=== PATIENT | male | born 1975 | race Caucasian/White ===

== ENCOUNTER → 2020-03-11 14:53 | Outpatient (CLI) | payer OTHER, SELFPAY ==
--- NOTE | 2020-03-11 14:54 | CT_ITS ---
PROCEDURE: CT SINUS WO CON CLINICAL HISTORY: Bilateral Mid Axillary Facial Pain Inner ear pain, dizziness, numbness in left COMPARISON: No exams were available for comparison TECHNIQUE: Axial images obtained with sagittal and coronal reformats. All CT scans at the facility use one or more dose reduction, viz: automated exposure control, ma/kV adjustment per patient size (including targeted exams where dose is matched to indication, i.e. head), or iterative reconstruction technique. FINDINGS: There is mild mucosal thickening involving the floor the left frontal sinus extending into the left anterior ethmoids. Minimal right ethmoid sinus mucosal thickening. No sinus air-fluid level. The mastoid sinuses have an unremarkable appearance. The orbits appear unremarkable. No significant nasal septal deviation. The ostiomeatal units are patent. Mild osteoarthritic changes left TMJ with minimal subchondral cystic changes of the mandibular condyle.. There are impacted mandibular wisdom teeth IMPRESSION: 1. Mild paranasal sinus disease 2. Mild left TMJ arthropathy 3. Impacted wisdom teeth Dictated by: Rajesh Pringle MD 03/11/2020 19:33 Rajesh Pringle MD in [place] 03/11/2020 19:33
== END ==
PROVIDERS: PCP Family Medicine; Visit Provider Otolaryngology
DX: H92.02 Otalgia, left ear (principal); G89.29 Other chronic pain
CPT/HCPCS: 70486

== ENCOUNTER 2020-03-12 22:26 | Emergency (ER) | payer OTHER, SELFPAY ==
[2020-03-12 22:26] VITALS: BP 152/98; PULSE 101; RESP 16; TEMP 36.9; O2SAT 98; BMI 30.5
--- NOTE | 2020-03-12 22:54 | CT_ITS ---
Procedure: CT ANGIO HEAD CLINICAL HISTORY: Sinus Pain Left ear pressure, left jaw all arm and leg numbness COMPARISON: CT CT HEAD/BRAIN WO CON from 03/12/2020 TECHNIQUE: IV Contrast: 100ml Isovue 370 Axial images obtained with sagittal and coronal reformats. All CT scans at the facility use one or more dose reduction, viz: automated exposure control, ma/kV adjustment per patient size (including targeted exams where dose is matched to indication, i.e. head), or iterative reconstruction technique. FINDINGS: No aneurysm, dissection, arteriovenous malformation, or major branch occlusion apparent. No sinus thrombosis. No enhancing lesions. Arachnoid cyst once again noted in the left middle cranial fossa anteriorly. No enhancement IMPRESSION: Negative CTA of the brain Dictated by: Rajesh Pringle MD 03/13/2020 09:07 Rajesh Pringle MD in [facility] 03/13/2020 09:07
--- NOTE | 2020-03-12 22:54 | CT_ITS ---
Procedure: CT ANGIO NECK CLINICAL HISTORY: Sinus Pain Left ear pressure, jaw pain, left arm and leg numbness COMPARISON: No exams were available for comparison TECHNIQUE: IV Contrast: 100ml Isovue 370 Axial images obtained with sagittal and coronal reformats. All CT scans at the facility use one or more dose reduction, viz: automated exposure control, ma/kV adjustment per patient size (including targeted exams where dose is matched to indication, i.e. head), or iterative reconstruction technique. FINDINGS: The aortic arch and great vessels have an unremarkable appearance. No carotid stenosis dissection or aneurysm. Unremarkable vertebral arteries. Lung apices and soft tissues have an unremarkable appearance. IMPRESSION: Negative CTA of the neck Dictated by: Rajesh Pringle MD 03/13/2020 09:03 Rajesh Pringle MD in [facility] 03/13/2020 09:03
--- NOTE | 2020-03-12 22:59 | HMH.EDGENADL ---
ED Disposition Clinical Impression: Dizziness Disposition: Home, Self-Care Condition on Discharge: Good Instructions: DI for Vertigo Additional Instructions: call pcp in am for follow up Referrals: Jose Vaughan MD [Primary Care Provider] - - Critical Care Critical Care Time: No Attestation: On 03/12/20, the high probability of a clinically significant, sudden or life threatening deterioration of the following system(s) required my full and direct attention, intervention and personal management. The time I documented below is in addition to time spent performing reported procedures but includes the following listed in this critical care notation. Medical Decision Making - Medical Records Medical records reviewed: Yes: I reviewed the patient's medical records. - Tomás Inquiry Pt receiving controlled substance: No Vital Signs: 03/12/20 22:26 Temperature 98.4 F Temperature Source Oral Pulse Rate [Left Radial] 101 H Respiratory Rate 16 Blood Pressure [Right Arm] 152/98 H Blood Pressure Mean [Right Arm] 116 Blood Pressure Source [Right Arm] Automatic Cuff Blood Pressure Position [Right Arm] Sitting 02 Sat by Pulse Oximetry 98 Oxygen Delivery Method Room Air - Lab Data Lab results reviewed: Yes: I reviewed the patient's lab results. Lab Results 03/12/20 23:10: WBC 8.1, RBC 5.36, Hgb 16.3, Hct 49.1, MCV 91.7, MCH 30.4, MCHC 33.2, RDW 13.0, Plt Count 248, MPV 8.5, Neut % (Auto) 64.8, Lymph % (Auto) 27.2, Kent % (Auto) 6.7, Eos % (Auto) 0.9, Baso % (Auto) 0.5, Neut # (Auto) 5.3, Lymph # (Auto) 2.2, Kent # (Auto) 0.5, Eos # (Auto) 0.1, Baso # (Auto) 0.0, ESR 17 H 03/12/20 23:10: Sodium 139, Potassium 4.2, Chloride 102, Carbon Dioxide 28, Anion Gap 13.2, BUN 10, Creatinine 1.00, Estimated Creat Clear 145, Estimated GFR 82, Est GFR ( Amer) 99, Glucose 136 H, Calcium 10.0, Total Bilirubin 0.7, AST 40, ALT 26, Alkaline Phosphatase 95, C-Reactive Protein 2.6, Total Protein 8.5 H, Albumin 4.9, Globulin 3.6 H, Albumin/Globulin Ratio 1.4 03/12/20 23:10: Procalcitonin 0.040 Result diagrams: 03/12/20 23:10 03/12/20 23:10 Orders (Tests/Meds): ED MEDICATIONS Discontinued Medications Generic Name Dose Route Start Last Admin Trade Name Eladio PRN Reason Stop Dose Admin Iopamidol 100 ml 03/13/20 01:03 03/12/20 23:55 Iopamidol-370 (76%);100ml Bottle IV 03/13/20 01:04 100 ml ONCE ONE Administration Sodium Chloride 40 ml 03/13/20 01:03 03/12/20 23:55 0.9 % Sodium Chloride 50 Ml Vial IV 03/13/20 01:04 40 ml ONCE ONE Administration Sodium Chloride 10 ml 03/13/20 01:03 03/12/20 23:55 Sodium Chloride 0.9% 10ml Syr (Rad Only) IV 03/13/20 01:04 10 ml ONCE ONE Administration ORDERS Category Date Time Status CT angio head Stat Cat Scan 03/12/20 22:[address] angio neck Stat Cat Scan 03/12/20 22:[address] head/brain wo con Stat Cat Scan 03/12/20 23:49 Taken - CT Data CT Scan: Head, Other (ctahead/neck- see report) Time Received: 01:[address] Reviewed: Yes: I have viewed the radiologist's interpretation Preliminary Findings: Abnormal (see report) Medical Decision Narrative: has uncertain neurological finding may require mri.neuro consult and lumbar puncture General Adult HPI - General Chief complaint: PAIN Stated complaint: pressure in ear Time Seen by Provider: 03/12/20 22:59 Mode of Arrival: Ambulatory Source of Information: Patient, Spouse, Medical Record Limitations: No Limitations Description of Symptoms (Recalled from ER Triage Doc. by RN): Pt c/o increasing sinus pain in left side of jaw. Pt has seen for CT yesterday. - History of Present Illness HPI narrative: pt has had pressure to lt ear and seen pcp and ent with recent ct - he c/o also of over the last yr - no visual sx but has pulsatile tinnitus - sx worse last few days - no rash or trauma or fever Onset (ago): day(s) Location: head Severity: moderate Associated symptoms:
[2020-03-12 23:20] LABS: Basophils % 0.5 % (0.1-2.0); Eosinophils # 0.1 K/mm3 (0.0-0.4); Eosinophils % 0.9 % (0.1-12.0); Hematocrit 49.1 % (42.0-52.0); Hemoglobin 16.3 g/dL (14.1-18.0); Lymphocytes # 2.2 K/mm3 (0.7-4.5); Lymphocytes % 27.2 % (10-50); Mean Corpuscular HGB Conc 33.2 g/dL (31.8-35.4); Mean Corpuscular Hemoglobin 30.4 pg (27.0-31.2); Mean Corpuscular Volume 91.7 fl (80-94); Mean Platelet Volume 8.5 fl (7.4-10.4); Monocytes # 0.5 K/mm3 (0.1-1.0); Monocytes % 6.7 % (1.7-9.3); Neutrophils # 5.3 K/mm3 (1.8-7.8); Neutrophils % 64.8 % (37.0-80.0); Platelet Count 248 K/mm3 (142-424); Red Blood Count 5.36 M/mm3 (4.60-6.20); White Blood Count 8.1 K/mm3 (4.8-10.8)
[2020-03-12 23:27] LABS: Alanine Aminotransferase 26 U/L (12-78); Albumin Level 4.9 g/dl (3.5-5.0); Albumin/Globulin Ratio 1.4 (1.1-1.8); Alkaline Phosphatase 95 U/L (38-126); Anion Gap 13.2 mEq/L (5-15); Aspartate Amino Transferase 40 U/L (17-59); Bilirubin,Total 0.7 mg/dl (0.2-1.3); Blood Urea Nitrogen 10 mg/dl (9-20); Carbon Dioxide 28 mmol/L (22.0-30.0); Chloride 102 mmol/L (98-107); Creatinine Clearance Estimated 145 mL/min (50-200); Estimated Glomerular Filt Rate 82 ml/min (>60); GFR (African American) 99 ML/MIN (>60); Globulin 3.6 g/dL (1.3-3.2); Glucose 136 mg/dl (74-100); Potassium 4.2 mmoL/L (3.5-5.1); Sodium 139 mmol/L (136-145); Total Protein,Serum 8.5 g/dl (6.3-8.2)
[2020-03-12 23:32] LABS: C-Reactive Protein 2.6 mg/L (0-4)
--- NOTE | 2020-03-12 23:49 | CT_ITS ---
PROCEDURE: CT HEAD/BRAIN WO CON CLINICAL INDICATION: Comparison for CTA COMPARISON: CT CT HEAD/BRAIN WO CON from 03/20/2019 TECHNIQUE: Axial images obtained. All CT scans at the facility use one or more dose reduction, viz: automated exposure control, ma/kV adjustment per patient size (including targeted exams where dose is matched to indication, i.e. head), or iterative reconstruction technique. FINDINGS: No midline shift, mass effect, intracranial hemorrhage, hydrocephalus, or extra-axial fluid collection is evident. Arachnoid cyst in the left middle cranial fossa anteriorly once again noted unchanged 3.5 x 1 cm. Nonspecific mild prominence of the CSF spaces in the optic nerve sheath. The calvarium has an unremarkable appearance. No mastoid effusion. There is mild mucosal thickening of the ethmoid sinuses. IMPRESSION: 1. No acute intracranial findings. 2. No change arachnoid cyst left middle cranial fossa. 3. Mild symmetrical prominence of CSF spaces in the optic nerve sheaths which can be seen with pseudotumor cerebri. Dictated by: Rajesh Pringle MD 03/13/2020 06:33 Rajesh Pringle MD in [place] 03/13/2020 06:33
[2020-03-12 23:56] VITALS: BP 114/74; PULSE 94; O2SAT 96
[2020-03-13 00:23] LABS: Erythrocyte Sedimentation Rate 17 mm/hr (0-15)
--- NOTE | 2020-03-13 00:25 | PC.NURSE ---
pt back from CT via wheelchair
[2020-03-13 01:58] VITALS: BP 133/86; PULSE 92; RESP 16; TEMP 36.7; O2SAT 97
== END 2020-03-13 01:58 | disposition home or self-care (01) ==
PROVIDERS: Emergency Provider Emergency Medicine; PCP Family Medicine
DX: R42 Dizziness and giddiness (principal)
CPT/HCPCS: 70450; 70496; 70498; 80053; 84145; 85025; 85651; 86140; 99283; Q9967

== ENCOUNTER → 2020-05-13 15:33 | Outpatient (CLI) | payer OTHER, SELFPAY ==
--- NOTE | 2020-05-13 15:48 | ECG_ITS ---
APPROVED REPORT Exam: Resting ECG HR:62 bpm ECG Measurements Heart Rate 62 AXES WA 128 P 33 QRSd 92 QRS 28 QT 400 T 43 QTc 406 Conclusion Normal sinus rhythm Normal ECG Electronically signed by : Phillip Montero, 05/13/2020 20:53:27
== END ==
PROVIDERS: PCP Family Medicine; Visit Provider Family Medicine
DX: R07.2 Precordial pain (principal)
CPT/HCPCS: 93005

== ENCOUNTER → 2021-04-21 13:27 | Outpatient (CLI) | payer MEDICAID, SELFPAY ==
--- NOTE | 2021-04-21 13:27 | MR_ITS ---
FINAL REPORT CLINICAL HISTORY: Migraine. migraine headache. inner ear pressure on lt side. dizziness. numbness lt arm and leg. symptoms x2.[address] 03-12-20 FINDINGS: Multiplanar MR imaging of the brain was performed without and with contrast. There is no evidence of intracranial hemorrhage or mass. No abnormal extra-axial fluid collection is seen. The ventricular size is within normal limits. There is no evidence of shift of the midline structures. The posterior fossa and brainstem have an unremarkable appearance. No area of abnormal restricted diffusion is identified. No abnormal contrast enhancement is seen. Normal major vessel vascular flow voids are noted. IMPRESSION: No acute intracranial abnormality identified. Reviewed, Interpreted and Dictated by Ulysses Chavez III, MD Transcribed by Leda Bragg Authenticated by Ulysses Chavez III, MD on 04/21/2021 04:25:12 PM [facility]
== END ==
PROVIDERS: PCP Emergency Medicine; Visit Provider Emergency Medicine
DX: R42 Dizziness and giddiness (principal); R51.9 Headache, unspecified
CPT/HCPCS: 70553; A9576

== ENCOUNTER → 2021-05-08 14:00 | Outpatient (CLI) | payer MEDICAID, SELFPAY ==
--- NOTE | 2021-05-08 14:00 | CA_ITS ---
APPROVED REPORT EXAM: Comprehensive 2D, Doppler, and color-flow Echocardiogram Senior Engineering Associate: Trang Ochoa CRT Ht: 6 ft 2 in Wt: 234lbs BSA: 2.32 BP: 145/91 mmHg Indications: Abnormal ECG, Chest Pain, Hypertension/HDD 2D Dimensions LVOT 2.01 cm (M/F) 1.5-2.5 LA Volume 61.30 mL LA Volume Index 26.40 mL/m2 (M/F) 16-34 M-Mode Dimensions RVDd 2.61 cm (0.9-2.6) LA Diam 3.87 cm (1.9-4.0) LVDd 5.32 cm (3.5-5.7) Ao Diam 4.20 cm (2.0-3.7) LVDs 3.83 cm (3.5-5.7) IVSd 1.68 cm (0.6-1.1) PWd 0.85 cm (0.6-1.1) EF (Teich) 53.80% FS 28.00% EDV (Teich) 136.50 mL TAPSE 2.33 (<1.7) ESV (Teich) 63.10 mL LV Diastology E Decel Time 267.00 (160-240 msec) E/A Ratio 0.94 MED E' 7.30 (< 7 cm/sec) MED A' 8.80 cm/s E'/MED E' Ratio 20.58 (>14) LAT E' 8.20 (<10 cm/sec) LAT A' 9.50 cm/s E/LAT E' Ratio 18.32 (>14) Aortic Valve AO Peak GR. 8.70 mmHg Mitral Valve MV A Velocity 160.00 (40-130 cm/s) E/A Ratio 0.94 MV Decel. Time 267.00 (160-240 ms) Pulmonary Valve PV Peak Velocity 144.00 (50-150 cm/s) Tricuspid Valve TR P. Velocity 229.00 cm/s RAP Estimate 10.00 mmHg RVSP 31.00 mmHg Left Ventricle Left atrium is mildly enlarged, left ventricle is normal size, mild concentric left ventricular hypertrophy, visually estimated ejection fraction 55% with no regional wall motion abnormality. Grade 1 diastolic dysfunction seen without tissue Doppler evidence of raise left atrial pressure. Right Ventricle Right atrium and right ventricle are mildly enlarged with normal contractility. Aortic Valve Aortic valve is grossly normal, there is no aortic stenosis or aortic insufficiency. Mitral Valve Mitral valve is grossly normal, there is trace mitral regurgitation. Tricuspid Valve Tricuspid valve grossly normal, there is trace tricuspid regurgitation, tricuspid regurgitation jet velocity is inadequate for calculation of the right ventricular systolic pressure. Pulmonic Valve Pulmonic valve is poorly visualized Great Vessels Aortic root is normal size. Inferior vena cava is poorly visualized. Pericardium No significant pericardial effusion noted. Conclusion 1. Mild biatrial alignment, normal left ventricular size, mild concentric left ventricular hypertrophy, visually estimated ejection fraction 55% with no regional wall motion abnormality, grade 1 diastolic dysfunction seen without tissue Doppler evidence of raise left atrial pressure. 2. Mildly enlarged right ventricle with normal contractility. 3. Trace mitral and tricuspid regurgitation. 4. No significant pericardial effusion noted. 5. Inferior vena cava is poorly visualized without significant inspiratory collapse. Electronically signed by : Tyree Rodríguez MD 05/09/2021 15:29:23
--- NOTE | 2021-05-08 14:00 | CA_ITS ---
APPROVED REPORT Exam: Exercise Treadmill Technologist: Viktoria Dillard, Ht: 6 ft 0 in Wt: 234 lbs BSA: 2.28 m2 HR: 63 bpm BP: 153/103 mmHg Rhythm: NSR, ST-T ABNS IN LEADS III AND NON LINEAR EDITOR Medical History Medications: LoraTidine,,,,, Sumatriptan,,,,, TriaMcinalone,,,,, UBrogepant,,,,, SucCINATE,,,,, Galcanezumab-gnlm,,,,, Propranol ER,,,,, AcetONIDE,,,,, Allergies: AMOXICILLIN, PEANUTS Cardiac Risk Factors: Smoking Stress Test Details Test: Angel, Exercise stress testing was performed using a modified Angel protocol. HR Resting HR: 75 bpm Max Heart Rate (APMHR): 175 bpm Max HR Achieved: 134 bpm Target HR (85% APMHR): 149 bpm % of APMHR: 77 Recovery HR: 90 bpm BP Resting BP: 153/103 mmHg Max BP: 184/100 mmHg Recovery BP: 136.0/92.0 mmHg ECG Resting ECG: NSR, ST-T ABNS IN LEADS III AND NON LINEAR EDITOR Clinical Exercise duration: 07:16 min Highest Stage Achieved: Stage 3: 3.4 mph at 14% grade. Exercise capacity: 10.1 METs Stress ECG Conclusion PT EXERCISED 7:16 INTO STAGE III OF ANGEL PROTOCOL. NO CP. EXAGGERATION OF BASELINE ABNS IN LEADS III AND AVF. OTHERWISE NORMAL ST RESPONSE TO EXERCISE. PROBABLT NORMAL GXT TO HR ACHIEVED (77% OF PM) BLUNTED HR RESPONSE ON PROPANOLOL GXT ONLY (NO IMAGING) Test Summary REST . . . . . . . Standing REST . . . . . . . Sitting REST 03:18 0.0 0.0 75 . 153/103 . . Stage 1 01:00 10.0 1.7 90 . . . . Stage 1 02:00 10.0 1.7 107 . . . . Stage 1 03:00 10.0 1.7 101 . 162/104 . . Stage 2 01:00 12.0 2.5 115 . . . . Stage 2 02:00 12.0 2.5 117 . . . . Stage 2 03:00 12.0 2.5 120 . 184/100 . . Stage 3 01:00 14.0 3.4 130 . . . . Stage 3 01:16 14.0 3.4 134 . . . Stop exercise at 07:16 RECOVERY 01:00 0.0 0.0 119 . . . . RECOVERY 02:00 0.0 0.0 96 . 155/ 99 . . RECOVERY 03:00 0.0 0.0 76 . 155/ 99 . . RECOVERY 04:00 0.0 0.0 78 . 138/ 89 . . RECOVERY 05:00 0.0 0.0 90 . 136/ 92 . . RECOVERY 05:19 0.0 0.0 83 . 136/ 92 . . Electronically signed by : Tyree Rodríguez MD 05/09/2021 12:16:35
== END ==
PROVIDERS: PCP Emergency Medicine; Visit Provider Nurse Practitioner Family
DX: R07.9 Chest pain, unspecified (principal); R42 Dizziness and giddiness; R94.31 Abnormal electrocardiogram [ECG] [EKG]
CPT/HCPCS: 93017; 93306

== ENCOUNTER → 2021-05-16 17:19 | Outpatient (CLI) | payer MEDICAID, SELFPAY ==
--- NOTE | 2021-05-16 17:19 | MR_ITS ---
PROCEDURE INFORMATION: Exam: MRA Head Without Contrast; Arteriography Exam date and time: 05/16/2021 5:26 PM Age: 46 years old Clinical indication: Pain; Headache; Additional info: Headache, pulsatile tinnitus lt ear. Dizziness and blurred vision. Prior MR 04-21-21 TECHNIQUE: Imaging protocol: Magnetic resonance angiography head without contrast. Cezn-ap-fvroez (TOF) technique was utilized for this exam. Exam focused on the arteries. COMPARISON: CT ANGIO HEAD 03/12/2020 11:57 PM FINDINGS: ANTERIOR CIRCULATION: Intracranial INTERNAL CAROTID arteries: Intracranial internal carotid arteries are without flow limiting stenosis. . MIDDLE cerebral arteries: M1, M2 and their distal visualized branches are without flow limiting stenosis. . ANTERIOR cerebral arteries: A1, A2 and their distal visualized branches are without flow limiting stenosis. Anterior communicating artery is unremarkable. . POSTERIOR CIRCULATION: VERTEBRAL arteries: Intracranial vertebral arteries and their visualized branches are without flow limiting stenosis. . BASILAR artery: The basilar artery and its visualized proximal branches are without flow limiting stenosis. . POSTERIOR cerebral arteries: P1, P2 and their distal visualized branches are without flow limiting stenosis. IMPRESSION: NO acute flow-limiting stenosis or aneurysm of the CENTRAL/major intracranial arteries.
== END ==
PROVIDERS: PCP Emergency Medicine; Visit Provider Specialist
DX: H93.A2 Pulsatile tinnitus, left ear (principal)
CPT/HCPCS: 70544

== ENCOUNTER → 2021-12-01 06:22 | Outpatient (CLI) | payer MEDICAID, SELFPAY ==
--- NOTE | 2021-12-01 08:16 | HMH.ITSHM ---
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 []TRIAMCINOLONE PROPRANOLOL GALCANEZUMAB ASA ALBUTEROL
== END ==
PROVIDERS: PCP Emergency Medicine; Visit Provider Nurse Practitioner Family
DX: R06.00 Dyspnea, unspecified (principal); R07.9 Chest pain, unspecified
CPT/HCPCS: 78452; 93017; A9502; J2785

== ENCOUNTER → 2021-12-04 15:12 | Outpatient (CLI) | payer MEDICAID, SELFPAY ==
--- NOTE | 2021-12-04 15:15 | XR_ITS ---
FINAL REPORT CLINICAL HISTORY: Left shoulder pain, numbness down arm from rotator cuff for last 2 years FINDINGS: LEFT SHOULDER Three views demonstrate no acute fracture or dislocation. There is mild degenerative change of the acromioclavicular joint. The visualized bony structures are well aligned. No soft tissue abnormality is seen. IMPRESSION: Mild degenerative change of the acromioclavicular joint. Reviewed, Interpreted and Dictated by Ulysses Chavez III, MD Transcribed by Lisandra Segura Authenticated and [facility]
== END ==
PROVIDERS: PCP Emergency Medicine; Visit Provider Specialist
DX: M25.512 Pain in left shoulder (principal)
CPT/HCPCS: 73030

== ENCOUNTER → 2022-01-05 13:57 | Outpatient (CLI) | payer MEDICAID, SELFPAY ==
--- NOTE | 2022-01-05 13:57 | MR_ITS ---
FINAL REPORT CLINICAL HISTORY: Left shoulder pain, decreased range of motion FINDINGS: Multiplanar MR imaging of the left shoulder was performed without contrast. There is a partial thickness articular surface tear of the supraspinatus tendon involving greater than 50% of tendon thickness. The remaining tendons of the rotator cuff are intact. There is mild AC joint degenerative change. A small amount of fluid is seen in the subacromial/subdeltoid bursa. The glenoid labrum is intact. The long head of the biceps tendon is intact. No significant glenohumeral joint effusion is seen. There is mild degenerative change of the glenohumeral joint. There is a subchondral cyst in the posterior humeral head. There is no evidence of fracture or dislocation. The musculature is intact. There is no evidence of soft tissue mass. IMPRESSION: Partial thickness supraspinatus tendon tear, greater than 50%. Mild degenerative change. Reviewed, Interpreted and Dictated by Ulysses Chavez III, MD Transcribed by Edy Roman Authenticated and [facility]
== END ==
PROVIDERS: PCP Emergency Medicine; Visit Provider Specialist
DX: M25.512 Pain in left shoulder (principal); M25.612 Stiffness of left shoulder, not elsewhere classified
CPT/HCPCS: 73221

== ENCOUNTER → 2022-02-18 16:46 | Outpatient (CLI) | payer MEDICAID, SELFPAY ==
[2022-02-18 16:54] LABS: Microscopic, Urine URINE MICROSCOPIC (MICROSCOPIC)
[2022-02-18 17:41] LABS: Basophils # 0.1 K/mm3 (0-0.2); Basophils % 1.1 % (0.1-2.0); Eosinophils # 0.2 K/mm3 (0.0-0.4); Hematocrit 46.2 % (42.0-52.0); Hemoglobin 15.2 g/dL (14.1-18.0); Lymphocytes # 2.7 K/mm3 (0.7-4.5); Lymphocytes % 37.2 % (10-50); Mean Corpuscular Hemoglobin 30.2 pg (27.0-31.2); Mean Corpuscular Volume 91.5 fl (80-94); Monocytes # 0.5 K/mm3 (0.1-1.0); Monocytes % 6.5 % (1.7-9.3); Neutrophils # 3.9 K/mm3 (1.8-7.8); Neutrophils % 53.2 % (37.0-80.0); Platelet Count 262 K/mm3 (142-424); Red Blood Count 5.04 M/mm3 (4.60-6.20); Red Cell Distribution Width 13.1 % (11.5-17.5); White Blood Count 7.3 K/mm3 (4.8-10.8)
[2022-02-18 18:09] LABS: Appearance,Urine CLEAR (Clear); Bilirubin,Urine Negative (Negative); Blood, Urine TRACE-L (Negative); Color,Urine YELLOW (Yellow); Glucose,Urine (UA) Negative (Negative); Ketones,Urine Negative (Negative); Leukocyte Esterase,Urine Negative (Negative); Nitrate,Urine Negative (Negative); PH,Urine 5.5 (5.0-8.5); Protein,Urine Negative (Negative); Specific Gravity, Urine >= 1.030 (1.005-1.030); Urobilinogen,Urine 0.2 EU/dl (0.2)
[2022-02-18 19:29] LABS: Chloride 104 mmol/L (98-107)
[2022-02-18 19:30] LABS: Potassium 4.8 mmoL/L (3.5-5.1); Sodium 141 mmol/L (136-145)
[2022-02-18 19:32] LABS: Blood Urea Nitrogen 9 mg/dl (9-20); Estimated Glomerular Filt Rate 91 ml/min (>60); GFR (African American) 110 ML/MIN (>60)
[2022-02-18 19:33] LABS: Alanine Aminotransferase 19 U/L (12-78); Albumin Level 4.3 g/dl (3.5-5.0); Albumin/Globulin Ratio 1.4 (1.1-1.8); Alkaline Phosphatase 78 U/L (38-126); Anion Gap 12.8 mEq/L (5-15); Aspartate Amino Transferase 26 U/L (17-59); Bilirubin,Total 0.5 mg/dl (0.2-1.3); Calcium 9.1 mg/dl (8.4-10.2); Carbon Dioxide 29 mmol/L (22.0-30.0); Glucose 88 mg/dl (74-100); Total Protein,Serum 7.3 g/dl (6.3-8.2)
[2022-02-18 19:39] LABS: Bacteria,Urine Trace /lpf; Mucus,Urine 2+ /lpf
== END ==
PROVIDERS: PCP Emergency Medicine; Visit Provider Orthopaedic Surgery
DX: Z01.818 Encounter for other preprocedural examination (principal); M75.112 Incomplete rotator cuff tear or rupture of left shoulder, not specified as traumatic
CPT/HCPCS: 36415; 80053; 81001; 85025

== ENCOUNTER 2022-02-23 07:40 | Day surgery (SDC) | payer MEDICAID, SELFPAY ==
[2022-02-19 10:00] VITALS: BMI 30.2
[2022-02-23] VITALS (12 sets, daily range): BP systolic 119–153; BP diastolic 72–100; PULSE 82–95; RESP 12–18; TEMP 36.4–43; O2SAT 94–98
--- NOTE | 2022-02-23 10:54 | P.PN_ITS ---
[facility] Disclaimer: The information contained in this section may have been updated after the patient was seen, as this information can be updated by other users. Medical History History of anxiety History of asthma History of hypertension History of migraine Surgical History (Updated 02/23/22 @ 08:10 by Ro Maddox RN) No history of previous surgery Family History Other Family history of anxiety disorder Family history of cancer Social History Smoking Status: Former smoker alcohol intake: never substance use type: denies use current occupational status: unemployed Travel in the last 8 weeks: None household members: spouse and children housing: house [facility] Anesthesia Checklist Patient Identification Patient Identification: Verbal (Name & ) Structural Data Admitted From: Home Planned Operative Procedure/s: l shoulder arthroscopy Consent for Planned Operative Procedure(s) Verified: Yes NPO Status Verified Time NPO: 06:00 Additional verifications Anesthesia Reactions: No Hx Blood Transfusions: No Blood Transfusion Reaction: No Airway Assessment C-Spine Mobility Assessed: Yes TMJ Mobility Assessed: Yes Dentition: Poor Dentition Neurological Assessment Level of Consciousness: Awake, Alert and Appropriate Anesthesia Plan Anesthesia Risk discussed: Yes Anesthesia Plan: Verified ASA Class: II Anesthesia Type: General w/block Preoperative Comments Pre-Operative Comments: BP block exp to pt, pt agrees to proceed w block
--- NOTE | 2022-02-23 11:48 | P.PNANES_ITS ---
[facility] Anesthesia Record Part I Anesthesia Record I Intake, IV Amount: 1,500 Estimated blood loss (mL): 0 Urine output (mL): 0 Blood Pressure: 148/100 SaO2: 94 Pulse Rate: 95 Respiratory Rate: 12 Temperature: 97.8 F Patient is:: Awake and Stable Stable to PACU at:: 11:45
--- NOTE | 2022-02-23 11:51 | P.OP_ITS ---
Date of procedure: 02/23/22 Pre-op Diagnosis:: Left shoulder partial-thickness rotator cuff tear more than 50% supraspinatus Post-op Diagnosis:: Near full-thickness tearing left shoulder supraspinatus rotator cuff tendon Procedure performed:: Left shoulder arthroscopy with rotator cuff repair Surgeon:: Misael Bishop DO Professor Of Religious Studies(s):: Yee LUONG DEAN OF INSTRUCTION:: Dar Heredia Anesthesia: GETA and regional Estimated blood loss (mL): 0 Operative findings:: Near full-thickness tearing supraspinatus left rotator cuff Operative note:: Patient was identified preoperatively. Left shoulder marked with a yes and my initials. Transported to operative suite after undergoing a peripheral block with anesthesia. Placed upon on the operating bed. Airway secured. Then placed in a lateral position. All bony prominences well-padded with a axillary roll placed. Left arm was then placed inline traction with the arm renteria. Left shoulder prepped and draped in normal sterile fashion. Once prepped and draped final operative timeout performed to identify proper patient procedure and extremity. Everyone involved in case agreed. No contraindications to beginning. Did receive preoperative antibiotics. Marking pen was used to masha the bony landmarks of the shoulder and standard portal sites. Skin knife was used incise posterior viewing portal and blunt with trocar was placed in the glenohumeral joint and exchanged with a camera. I moved anteriorly just above the subscapularis tendon where the anterior working portal was made and switch with a purple cannula. Probe was then placed in the glenohumeral joint. Glenohumeral cartilage was intact. The biceps tendon was intact. The labrum was intact. There was fraying on the undersurface of the rotator cuff supraspinatus. This was debrided lightly with the sucker shaver. It was then marked with a PDS suture for visualization of the subacromial space. No further intra-articular pathology was seen. Camera was removed. Portals were established in the subacromial space. Within the subacromial space there was moderate amount of bursitis which was debrided with a sucker shaver. The area that was marked with a PDS was interrogated with a probe. There is near full-thickness tearing of the supraspinatus at this area. Therefore sucker shaver was used to debride this area complete rotator cuff tear at the supraspinatus footprint. Edges of the rotator cuff were debrided. Footprint was debrided. Using a speed fix method fiber tape was passed through the rotator cuff and brought to the medial swivel lock anchor. This gave good repair of the rotator cuff tendon. Pictures taken in the lateral portal and superiorly to confirm good coverage and repair of the rotator cuff tear. No further pathology was seen. Shoulder was drained. Cannulas were removed. Skin closed with nylon stitch sterile dressing placed. Patient placed in a pillow and sling taken recovery in stable condition. Condition: stable Disposition: PACU Complications:: None apparent
--- NOTE | 2022-02-23 12:49 | SUR.PHASEII ---
Pt medicated with Dilaudid 1mg IV for L sholder post-op pain 09/24 per order.
--- NOTE | 2022-02-27 11:36 | P.PNANES_ITS ---
[facility] Anesthesia Record Part II Anesthesia Record Part II Discharge Time: 12:25 Destination: Surgical Day Care (OP Surgery) PACU nurse assessment reviewed?: Yes Patient Condition:: Good Anesthesia Complications:: None Swallowing reflex intact?: Yes Cyanosis?: No Blood Pressure: 121/73 Pulse Rate: 84 Temperature: 97.5 F Mental Status: Alert & Oriented Pain level:: 0 Nausea and/or vomitting:: None Intake, IV Amount: 0
[2022-02-27 11:37] VITALS: BP 121/73; PULSE 84; TEMP 36.4
== END 2022-02-23 13:20 | disposition home or self-care (01) ==
PROVIDERS: PCP Emergency Medicine; Visit Provider Orthopaedic Surgery
PROC: (CPT 29805; principal; 2022-02-23 09:15)
DX: M75.112 Incomplete rotator cuff tear or rupture of left shoulder, not specified as traumatic (principal); M75.52 Bursitis of left shoulder
CPT/HCPCS: 29827; 96374; C1713; J2405

== ENCOUNTER 2022-04-02 12:30 | Day surgery (SDC) | payer MEDICAID, SELFPAY ==
[2022-04-02] VITALS (8 sets, daily range): BP systolic 112–156; BP diastolic 60–100; PULSE 78–107; RESP 12–18; TEMP 36.2–36.6; O2SAT 92–99; BMI 29.5
--- NOTE | 2022-04-02 14:20 | HMH.SCOPE ---
Procedure: Date: 04/02/22 Patient Date of :: 1975 Procedure Performed:: EGD Indications:: Melena, rectal bleeding Performing Provider:: Steven Nash MD Referring Provider:: Pascual Ty MD Sedation:: Propofol Procedure:: The gastroscope was gently passed through the incisoral orifice into the oral cavity and under direct visualization the esophagus was intubated. The endoscope was passed down the esophagus, through the stomach, and into the duodenum. Color, texture, mucosa, and anatomy of the esophagus, stomach, and duodenum were carefully examined with the scope. Findings:: Oropharynx: normal Esophagus: normal EG Junction: intact at 40 cm Cardia: normal Fundus: normal Body: normal Antrum: normal Duodenal bulb: normal Duodenum (second and third portion): normal Impression: Normal EGD Recommendations:: F/U PRN with PCP Complications:: None Estimated blood obtained (mL): 0
--- NOTE | 2022-04-02 14:22 | HMH.SCOPE ---
Procedure: Date: 04/02/22 Patient Date of :: 1975 Procedure Performed:: Colonoscopy with biopsies and mucosal tattoo Indications:: Melena, Rectal bleeding Performing Provider:: Steven Nash MD Referring Provider:: Pascual Ty Sedation:: Propofol Procedure:: After placing the patient in the left lateral decubitus position, the colonoscopy was gently inserted into the rectum and under direct visualization advanced to the cecum which was identified by transillumination in the right lower quadrant, identification of the ileocecal valve, appendiceal orifice, and cecal strap. Color, texture, mucosa, and anatomy of the colon were carefully examined with the scope. Findings:: Anal canal: normal Rectum: normal Sigmoid colon: Large 4+cm multilobulated villous polyp on a large stalk. Too large for endoscopic removal and high bleeding risk. Position marked with Matilde Ink tattoo & biopsied. Descending colon: normal without polyps or inflammatory changes Splenic flexure: normal Transverse colon: normal without polyps or inflammatory changes Hepatic flexure: normal Ascending colon: normal without polyps or inflammatory changes Cecum: normal Terminal ileum: not visualized Impression: Large multilobulated villous polyp on large stalk. Specimens:: Sigmoid polyp Recommendations:: Attempt at endoscopic removal with advanced endoscopy service or Complete removal with surgical sigmoid resection Complications:: None Estimated blood obtained (mL): 0
--- NOTE | 2022-04-02 14:37 | EXP.ANES.I ---
[facility] Anesthesia Record Part I Anesthesia Record I Intake, IV Amount: 1,500 Estimated blood loss (mL): 0 Urine output (mL): 0 Blood Pressure: 148/100 SaO2: 94 Pulse Rate: 95 Respiratory Rate: 12 Temperature: 97.8 F Patient is:: Awake and Stable Stable to PACU at:: 11:45
--- NOTE | 2022-04-02 14:39 | P.PN_ITS ---
[facility] Disclaimer: The information contained in this section may have been updated after the patient was seen, as this information can be updated by other users. Medical History History of anxiety History of asthma History of hypertension History of migraine Surgical History History of shoulder surgery Family History Other Family history of anxiety disorder Family history of cancer Family history of diabetes mellitus type II Social History (Updated 04/02/22 @ 12:40 by Leana Ceballos RN) Smoking Status: Former smoker alcohol intake: never substance use type: denies use current occupational status: unemployed Travel in the last 8 weeks: None household members: spouse and children housing: house marital status: education level: high school do you feel safe at home: Yes victim of physical abuse: No victim of emotional abuse: No victim of sexual abuse: No would you like helpful sources: No [facility] Anesthesia Checklist Patient Identification Patient Identification: Arm Band and Family Structural Data Admitted From: Home Planned Operative Procedure/s: EGD, Colostomy Consent for Planned Operative Procedure(s) Verified: Yes Verified Documents: Surgical Consent and History and Physical NPO Status Verified Time NPO: 00:00 Additional verifications Patient : No Anesthesia Reactions: No Hx Blood Transfusions: No Blood Transfusion Reaction: No Cephalosporin Allergy: No Previous Colonoscopy: No Airway Assessment C-Spine Mobility Assessed: Yes TMJ Mobility Assessed: Yes Dentition: Good Dentition Neurological Assessment Level of Consciousness: Awake, Alert, Appropriate and Follows Commands Hx Seizures: No Numbness or tingling in extremities: No Anesthesia Plan Anesthesia Risk discussed: Yes ASA Class: II Anesthesia Type: MAC Preoperative Comments Pre-Operative Comments: Bloody and black stools.
== END 2022-04-02 15:10 | disposition home or self-care (01) ==
PROVIDERS: PCP Emergency Medicine; Visit Provider Internal Medicine Gastroenterology
PROC: 0DJ08ZZ Inspection of Upper Intestinal Tract, Via Natural or Artificial Opening Endoscopic (ICD-10-PCS; CPT 43235; principal; 2022-04-02 13:30)
DX: D12.5 Benign neoplasm of sigmoid colon; K92.1 Melena; Z79.899 Other long term (current) drug therapy
CPT/HCPCS: 43235; 45380; J2704

== ENCOUNTER 2022-06-22 17:00 | Outpatient (RCR) | payer MEDICAID, SELFPAY ==
--- NOTE | 2022-04-27 17:41 | HMH.PTOPEV ---
PT Outpatient Evaluation Rehab PT Outpatient Evaluation Start: 04/27/22 14:59 Freq: Status: Active Protocol: Document 04/27/22 14:59 LIZETLYDIA (Rec: 04/27/22 17:39 DERIK [id number]) E-signed By Marilyn Groves, PT Outpatient Therapy Subjective History Subjective History Pt is a 47 y/o that reports to PT 9 weeks s/p left arthroscopic rotator cuff repair performed on 02/23/22. Pt reports he had a near full thickness tear of his supraspinatus. Pt denies complications following surgery. Pt reports intermittent tingling of the thumb after waking up in the morning or after sitting for prolonged periods. Pt reports he only has pain around his deltoid and bicep at night and is unable to get comfortable to sleep well. Pt reports he is left handed. Pt reports he returned to Dr. Bishop on with good report and has another followup visit on 05/27. Pt denies having imaging since the surgery. Pt denies taking medication for pain. 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 Medical History: hypertension, asthma Chief Complaint Pain,Stiff,Paresthesia Symptom Type Ache,Dull Symptoms Relieved By Rest/Positioning,Ice Prior Functional Limitations None Current Functional Limitations Reaching,Lifting,Housework, Dressing,Driving,Sleeping Symptom Description Intermittent Level of pain today (0-10) 0 Pain scale - at its best (0-10) 0 Pain scale - at its worst (0-10) 2 Shoulder/Elbow Eval Shoulder Objective Measurements Palpation Tenderness tenderness shoulder exam standard left tenderness over the bicipital tendon left shoulder exam standard Shoulder Palpation Findings Muscle Guarding Shoulder ROM Left Shoulder Abduction Passive Range of 70 Motion (degrees) Shoulder Flexion Passive Range of Motion 85 (degrees) Shoulder External Rotation Passive Range 30 of Motion (degrees) Shoulder Internal Rotation Passive Range 20 of Motion (degrees)
--- NOTE | 2022-05-25 18:24 | HMH.RHREAS ---
Rehab Reassessment Rehab OP Re-assessment Start: 05/25/22 17:08 Freq: Status: Active Protocol: Document 05/25/22 17:08 LIZETLYDIA (Rec: 05/25/22 18:24 DERIK [id number]) E-signed By Marilyn Groves PT Rehab Re-assessment Subjective Subjective Pt reports L shoulder improvements overall with continued difficulty with overhead movements. Pt reports 1/10 pain at worst described as a dull ache. Pt reports he returns to his surgeon this for a follow up visits. Pt reports he is compliant with his HEP including stretching, pendulums, table slides, supine AAROM with cane and pulleys. Objective Objective Notes L shoulder PROM/AAROM in supine: flex 130, abd 115, IR 75, ER 50 (IR/ER measured in scapular plane) Assessment Progress Assessment Progressing as Expected Assessment Notes Pt has attended 5 PT visits consisting of L shoulder PROM/ AAROM, cervical stretching, scapular strengthening, manual therapy, and modalities with good tolerance. Pt demonstrated improved L shoulder PROM/AAROM this date compared to initial evaluation . Pt continues to demonstrate tightness ~130 degrees elevation and with IR/ER at 90 degrees. Pt would continue to benefit from skilled PT to further improve L shoulder P/ AA/AROM and strength to assist with return to PLOF following surgical intervention. Patient goals met ST/5 Goals Not Met Full PROM Revised Goals n/a Plan Plan Continue initial POC Frequency of Therapy 2x/week Duration of therapy 6 more weeks Time and Billing Re-Eval Time 10 Re-Eval Billing Units 1 PHYSICIAN CERTIFICATION: I certify the specified therapy services for Mustapha Diaz are required, authorized, and revi
--- NOTE | 2022-06-22 18:08 | HMH.RHREAS ---
Rehab Reassessment Rehab OP Re-assessment Start: 05/25/22 17:08 Freq: Status: Active Protocol: Document 06/22/22 17:59 DERIK (Rec: 06/22/22 18:08 DERIK [id number]) E-signed By Marilyn Groves PT Rehab Re-assessment Subjective Subjective Pt reports he has no shoulder pain just occasional aches. Pt reports he has intermittent tingling of the L thumb without known provocation, denies neck pain. Pt reports he is compliant with his HEP and is doing well overall. Objective Objective Notes L shoulder supine AROM: 152 flexion, abduction 160, ER 70, IR 85 L shoulder MMT: 4-/5 grossly Assessment Progress Assessment Progressing as Expected Assessment Notes Pt has attended 12 PT visits consisting of L shoulder P/AA/ AROM, UE stretching, isometric RC strengthening, scapular strengthening, manual therapy and modalities with good tolerance. Pt reports improved pain and demonstrated improved L shoulder AROM this date compared to last reassessment. Pt would continue to benefit from skilled PT to further improve L shoulder AROM and strength to assist with return to PLOF. Patient goals met ST/5 LT/6 Goals Not Met Seated shoulder AROM, strength , lifting Revised Goals Improve L shoulder scapular/ shoulder strength to 4+-5/5 grossly Improve L shoulder elevation to at least 170 Plan Plan Continue initial POC Frequency of Therapy 2x/week Duration of therapy 4 more weeks Time and Billing Re-Eval Time 13 Re-Eval Billing Units 1 PHYSICIAN CERTIFICATION: I certify the specified therapy services for Mustapha Diaz are required, authorized, and reviewed every 30 days.
== END 2022-06-22 17:05 | disposition home or self-care (01) ==
LOC: PT 17:00
PROVIDERS: PCP Emergency Medicine; Visit Provider Orthopaedic Surgery
DX: M25.512 Pain in left shoulder (principal)
CPT/HCPCS: 97014; 97016; 97110; 97112; 97140; 97163; 97164; G0283

== ENCOUNTER → 2022-07-06 08:11 | Outpatient (CLI) | payer MEDICAID, SELFPAY ==
--- NOTE | 2022-07-06 08:12 | CT_ITS ---
FINAL REPORT TECHNIQUE: Axial CT images of the abdomen and pelvis were obtained before and after the administration of IV contrast. This study was performed with techniques to keep radiation doses as low as reasonably achievable (ALARA). Individualized dose reduction techniques using automated exposure control or adjustment of mA and/or kV according to the patient''s size were employed. CLINICAL HISTORY: RLQ abdominal pain since colonoscopy a few months ago. FINDINGS: Abdomen: The lung bases are clear. The heart is normal in size. The liver has an unremarkable appearance, without evidence of mass or biliary duct dilatation. The gallbladder is unremarkable.. The spleen is unremarkable. No adrenal masses present. The pancreas has an unremarkable appearance. There is a 13 mm cyst in the superior pole the right kidney. The aorta is normal in caliber. There is no free fluid or adenopathy. No mass or abnormal fluid collection is seen. There is a small umbilical hernia containing fat. Precontrast images demonstrate no evidence of nephrolithiasis. Pelvis: The appendix is normal. The urinary bladder is unremarkable. No inflammatory process is seen. There is no evidence of mass or adenopathy. There is no evidence of bowel obstruction. There is a left inguinal hernia containing fat. IMPRESSION: No evidence of acute intra-abdominal process. Reviewed, Interpreted and Dictated by Ulysses Chavez III, MD Transcribed by Edy Roman Authenticated and [facility]
[2022-07-06 08:47] LABS: Blood Urea Nitrogen 11 mg/dl (9-20); Estimated Glomerular Filt Rate 91 ml/min (>60); GFR (African American) 110 ML/MIN (>60)
== END ==
PROVIDERS: PCP Emergency Medicine; Visit Provider Nurse Practitioner Family
DX: R10.9 Unspecified abdominal pain (principal)
CPT/HCPCS: 36415; 74178; 82565; 84520; Q9967

== ENCOUNTER → 2022-08-14 16:47 | Outpatient (CLI) | payer MEDICAID, SELFPAY | PROVIDERS: PCP Emergency Medicine; Visit Provider Nurse Practitioner | DX: M26.609 Unspecified temporomandibular joint disorder, unspecified side (principal) ==

== ENCOUNTER → 2022-08-28 16:50 | Outpatient (CLI) | payer MEDICAID, SELFPAY ==
--- NOTE | 2022-08-28 16:50 | MR_ITS ---
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 Loss of sense of balance. Intermittent hearing loss out of left ear TECHNIQUE: Imaging protocol: Magnetic resonance imaging of the face without and with contrast. Contrast material: PROHANCE; Contrast volume: 21 ml; Contrast route: IV; COMPARISON: MR HEAD/BRAIN WO/W CON 04/21/2021 2:21 PM FINDINGS: Paranasal sinuses: Paranasal sinuses are clear. Mastoid air cells: Mastoid air cells appear clear. Orbital cavities: Orbits appear grossly normal. Nasopharynx: Pharynx: Unremarkable. Larynx: Visualized larynx is unremarkable. Salivary glands: Parotid and submandibular glands appear normal. Lymph nodes: No lymphadenopathy. Soft tissues: Unremarkable. Bones/joints: No acute osseous abnormality. IMPRESSION: 1. Unremarkable MR face. 2. If there is specific concern for TMJ pathology, consider nonemergent dedicated MRI temporomandibular joints without contrast. 3. If there is specific concern for an acoustic schwannoma or similar abnormality, consider dedicated MRI IAC with and without contrast.
== END ==
PROVIDERS: PCP Emergency Medicine; Visit Provider Nurse Practitioner
DX: M26.602 Left temporomandibular joint disorder, unspecified (principal); H05.53 Retained (old) foreign body following penetrating wound of bilateral orbits
CPT/HCPCS: 70543; A9576

== ENCOUNTER → 2022-08-31 15:39 | Outpatient (CLI) | payer MEDICAID, SELFPAY ==
--- NOTE | 2022-08-31 15:50 | XR_ITS ---
FINAL REPORT CLINICAL HISTORY: left shoulder pain COMPARISON: 12/04/2021 FINDINGS: 3 views of the left shoulder were obtained. There is no fracture or dislocation. The joint space is preserved. Soft tissues are normal. IMPRESSION: No acute osseous abnormality of the left shoulder. Reviewed, Interpreted and Dictated by Tiffanie Steven MD Transcribed by Leda Bragg Authenticated and [facility]
== END ==
PROVIDERS: PCP Emergency Medicine; Visit Provider Orthopaedic Surgery
DX: M25.512 Pain in left shoulder (principal)
CPT/HCPCS: 73030

== ENCOUNTER → 2022-09-16 14:57 | Outpatient (POV) | payer MEDICAID, SELFPAY ==
--- NOTE | 2022-09-16 15:11 | EXP.PAIN.OV ---
HPI Data of Consult Patient: new to practice Consult date: 09/16/22 Requesting Physician: Marilyn Bishop APRN Consult Narrative Reason for consult: Left TMJ dysfunction, left ear pain, migraines History of present illness: Mr. Diaz is a 47 year old male who presents today as a new patient. He is a referral from [facility]. Today he rates his pain a 3 out of 10. Patient states he has left TMJ dysfunction along with left ear pain and migraines. Patient states he has been experiencing this issue since around 2019 and has tried multiple avenues. He states he has been to an ENT doctor as well as a neurologist. He does currently see Dr. Oconnor who does have him on Imitrex and Emgality for his migraine headaches which she states does help some. He states the pain is like a dull ache that will even have pressure and feel like fluid builds up into his left ear causing loss of hearing sensation as well as other times will have constant tinnitus. Patient does state he also has popping. Patient does state he also has popping and that his jaw will randomly lock up and he will feel like the bones are grinding together. Patient states he was referred to Dr. Condon's office for possible Botox injections for his TMJ however they were out of network and he did not proceed forward with any other options. Patient has tried [id number] medications such as Tylenol and ibuprofen along with heat and ice and Voltaren with no additional relief. Patient is interested in any additional help we may be able to provide. Patient is not on any scheduled medications. His Tomás is [phone]. Its been reviewed and appropriate. CC: Marilyn Bishop APRN [facility] Disclaimer: The information contained in this section may have been updated after the patient was seen, as this information can be updated by other users. Medical History History of anxiety History of asthma History of hypertension History of migraine Tinnitus Surgical History History of shoulder surgery left Family History Other Family history of anxiety disorder Family history of cancer Family history of diabetes mellitus type II Social History Smoking Status: Former smoker alcohol intake: never substance use type: denies use current occupational status: unemployed Travel in the last 8 weeks: None household members: spouse and children housing: house marital status: education level: high school do you feel safe at home: Yes victim of physical abuse: No victim of emotional abuse: No victim of sexual abuse: No would you like helpful sources: No Review of Systems Review of Systems Review of systems:: pertinent systems reviewed and negative unless documented below Review of systems (narrative): Review of Systems: General: No recent weight changes, no fever, no sleep disturbances Respiratory: No cough, no shortness of air, no recurring pulmonary infections Cardiovascular/peripheral vascular: No chest pain, no palpitations, no edema, no shortness of breath Gastrointestinal: No new onset incontinence, normal bowel movements reported Genitourinary: No new onset incontinence Musculoskeletal: Left TMJ dysfunction, left ear pain, left jaw pain, migraines Psychiatric: [Normal mood/affect] Neurological: [Denies weakness in extremities], [denies balance issues] Meds Home Medications and Allergies Home Medications Medication Instructions Recorded Confirmed Type triamcinolone acetonide 55 mcg 1 spray intranasal DAILY allergies 03/04/20 09/08/22 History nasal spray aerosol (Nasacort) aspirin 81 mg tablet,delayed 81 mg PO DAILY prevention 05/06/21 09/08/22 History release (Adult Low Dose Aspirin) albuterol sulfate 90
[2022-09-16 15:35] VITALS: BP 150/95; PULSE 70; RESP 18; O2SAT 97; BMI 30.2
== END ==
PROVIDERS: Visit Provider Nurse Practitioner Family
DX: M26.602 Left temporomandibular joint disorder, unspecified (principal); H92.02 Otalgia, left ear; G43.919 Migraine, unspecified, intractable, without status migrainosus
CPT/HCPCS: 99202; G0463

== ENCOUNTER 2022-11-06 13:10 | Day surgery (SDC) | payer MEDICAID, SELFPAY ==
[2022-11-06 13:14] VITALS: BP 147/88; PULSE 67; RESP 18; TEMP 36.7; O2SAT 98; BMI 30.2
[2022-11-06 13:47] VITALS: BP 130/91; PULSE 61; RESP 18; O2SAT 98
--- NOTE | 2022-11-06 14:22 | EXP.PAIN.PRO ---
Procedure Date: 11/06/22 Time: 14:22 Anesthesiologist:: Rommel Zamudio MD Complications:: None Pre-procedure Diagnosis:: TMJ dysfunction Post-procedure Diagnosis:: Same Indications for Procedure:: The patient was a 47-year-old white male who we are seeing for left TMJ dysfunction along with left ear pain and migraines. He has been to an ENT doctor as well his neurologist. He is on medications. This is not helping we will do a left TMJ injection today to see if this helps with his pain symptoms. Procedure Details:: Left TMJ injection Informed consent was obtained risk and benefits of the procedure were explained to the patient. Patient was taken the procedure room. The area anterior to the left tragus was prepped using alcohol preps. A 25-gauge needle was inserted advanced into the left temporomandibular joint. We then injected 3 mL lidocaine 1% and Depo-Medrol 40 mg into the left temporomandibular joint. Patient tolerated the procedure well with no complications. Plan and Disposition:: We will follow-up with him in 2 weeks. Will reevaluate symptoms at that time.
== END 2022-11-06 13:47 | disposition home or self-care (01) ==
LOC: SC.PAINP 13:11
PROVIDERS: PCP Emergency Medicine; Visit Provider Anesthesiology
DX: M26.602 Left temporomandibular joint disorder, unspecified (principal)
CPT/HCPCS: 20605; J1030

== ENCOUNTER 2023-04-19 09:08 | Outpatient (CLI) | payer MEDICAID, SELFPAY ==
--- NOTE | 2023-04-19 09:09 | MR_ITS ---
FINAL REPORT CLINICAL HISTORY: New headache with Valsalva. CHRONIC MIGRAINE HEADACHE. PRESSURE IN HEAD. FINDINGS: Multiple projection images of the brain arterial vasculature were obtained without contrast. The raw data images were also reviewed. The distal internal carotid, distal vertebral and basilar arteries have an unremarkable appearance without evidence of significant stenosis or occlusion. The proximal anterior, middle and posterior cerebral arteries have an unremarkable appearance. There is no evidence of significant stenosis or major branch occlusion. No aneurysm or vascular malformation is identified. IMPRESSION: Unremarkable MR angiogram of the head. Reviewed, Interpreted and Dictated by Ulysses Chavez III, MD Transcribed by Leda Bragg Authenticated and [facility]
== END 2023-04-19 23:59 ==
LOC: RAD 09:09
PROVIDERS: PCP Internal Medicine; Visit Provider Nurse Practitioner Family
DX: G43.E19 Chronic migraine with aura, intractable, without status migrainosus (principal); H93.19 Tinnitus, unspecified ear
CPT/HCPCS: 70544

== ENCOUNTER 2023-04-28 15:55 | Outpatient (CLI) | payer MEDICAID, SELFPAY ==
--- NOTE | 2023-04-28 15:56 | MR_ITS ---
PROCEDURE INFORMATION: Exam: MR Head Without and With Contrast Exam date and time: 04/28/2023 4:15 PM Age: 48 years old Clinical indication: Pain; Headache; Additional info: New onset headache with valsalva TECHNIQUE: Imaging protocol: Magnetic resonance imaging of the head without and with contrast. Contrast material: PROHANCE; Contrast volume: 22 ml; Contrast route: IV; COMPARISON: MR ANGIO HEAD WO CON 04/19/2023 9:07 AM FINDINGS: Brain: No brain parenchymal signal abnormality. No abnormal parenchymal or leptomeningeal enhancement. No evidence for acute transcortical infarct. No mass effect or midline shift. No extra-axial collection. No acute intracranial hemorrhage. Basal cisterns are patent. Cerebral ventricles: Normal. No ventriculomegaly. Bones/joints: Unremarkable. Paranasal sinuses: Normal as visualized. No acute sinusitis. Mastoid air cells: Normal as visualized. No mastoid effusion. Orbital cavities: Unremarkable. Soft tissues: Unremarkable. IMPRESSION: Unremarkable exam.
[2023-04-28 16:06] LABS: MANUAL DIFFERENTIAL MANUAL DIFFERENTIAL (MANUAL DIFF)
[2023-04-28 16:27] LABS: Blood Urea Nitrogen 12 mg/dl (9-20); Estimated Glomerular Filt Rate 90 ml/min (>60); GFR (African American) 109 ML/MIN (>60)
[2023-04-28 16:31] LABS: Basophils % 0.6 % (0.1-2.0); Eosinophils # 0.2 K/mm3 (0.0-0.4); Eosinophils % 1.9 % (0.1-12.0); Hematocrit 43.6 % (42.0-52.0); Hemoglobin 14.9 g/dL (14.1-18.0); Lymphocytes # 3.1 K/mm3 (0.7-4.5); Mean Corpuscular HGB Conc 34.2 g/dL (31.8-35.4); Mean Corpuscular Hemoglobin 32.3 pg (27.0-31.2); Mean Corpuscular Volume 94.5 fl (80-94); Monocytes # 0.4 K/mm3 (0.1-1.0); Monocytes % 5.9 % (1.7-9.3); Neutrophils # 3.8 K/mm3 (1.8-7.8); Neutrophils % 50.7 % (37.0-80.0); Platelet Count 228 K/mm3 (142-424); Red Blood Count 4.61 M/mm3 (4.60-6.20); Red Cell Distribution Width 13.6 % (11.5-17.5); White Blood Count 7.5 K/mm3 (4.8-10.8)
[2023-04-28 16:33] LABS: C-Reactive Protein 4.4 mg/L (0-4)
[2023-04-28 17:02] LABS: Erythrocyte Sedimentation Rate 8 mm/hr (0-15)
[2023-04-28] MEDS: SODIUM CHLORIDE 0.9% 10ML SYR (RAD ONLY) 10 ML IV (17:18)
[2023-04-28] MEDS: GADOTERIDOL INJ 17ML SYRINGE 22 ML IV (17:18)
[2023-04-28 20:12] LABS: Eosinophils % 4 % (0-3); Lymphocytes % 44 % (10-50); Monocytes % 2 % (2-9); Neutrophils % 50 % (42-76); Total Cells Counted 100
[2023-04-28 20:13] LABS: Platelet Estimate Normal; RBC Morphology Normal
== END 2023-04-28 23:59 ==
LOC: RAD 15:56
PROVIDERS: PCP Nurse Practitioner Family; Visit Provider Nurse Practitioner Family
DX: G43.E19 Chronic migraine with aura, intractable, without status migrainosus (principal); H93.19 Tinnitus, unspecified ear
CPT/HCPCS: 70553; 82565; 84520; 85007; 85014; 85018; 85048; 85049; 85651; 86140; A9576

== ENCOUNTER 2023-05-25 10:52 | Outpatient (CLI) | payer MEDICAID, SELFPAY ==
--- NOTE | 2023-05-25 10:52 | CT_ITS ---
FINAL REPORT TECHNIQUE: Thin section axial CT images of the facial bones and sinuses were obtained without contrast. Coronal and sagittal reformatted images were also obtained.This study was performed with techniques to keep radiation doses as low as reasonably achievable, (ALARA). Individualized dose reduction techniques using automated exposure control or adjustment of mA and/or kV according to the patient''''s size were employed. CLINICAL HISTORY: Sinusitis COMPARISON: 03/11/2020 FINDINGS: There is mild mucosal thickening in the right maxillary sinus, multiple ethmoid air cells, and the right sphenoid sinus. There is improved aeration in the inferior left frontal sinus when compared to the prior exam of 2020. However there is new right frontal mucosal thickening. No air-fluid levels are identified. The ostiomeatal units have an unremarkable appearance. The nasal septum is in the midline. No fracture or acute bony abnormality is identified. IMPRESSION: Mild mucosal thickening in multiple sinuses, overall slightly worse than seen on the prior CT of 2020. No air-fluid levels are present to suggest acute sinusitis. Reviewed, Interpreted and Dictated by Ulysses Chavez III, MD Transcribed by Ludy Marti Authenticated and [facility]
== END 2023-05-25 23:59 | disposition home or self-care (01) ==
LOC: RAD 10:52
PROVIDERS: PCP Internal Medicine; Visit Provider Nurse Practitioner
DX: J32.9 Chronic sinusitis, unspecified (principal); Z87.891 Personal history of nicotine dependence
CPT/HCPCS: 70486

== ENCOUNTER 2023-07-07 15:03 | Outpatient (POV) | payer MEDICAID, SELFPAY | END 2023-07-07 23:59 | disposition home or self-care (01) | LOC: SC 15:03 | PROVIDERS: Visit Provider Specialist/Technologist | DX: Z00.00 Encounter for general adult medical examination without abnormal findings (principal) ==

== ENCOUNTER 2024-01-13 08:04 | Emergency (ER) | payer OTHER, SELFPAY ==
[2024-01-13] VITALS (7 sets, daily range): BP systolic 106–164; BP diastolic 68–113; PULSE 60–70; RESP 12–20; TEMP 37; O2SAT 95–98; BMI 30.2
--- NOTE | 2024-01-13 08:07 | ECG_ITS ---
APPROVED REPORT Exam: Resting ECG HR:62 bpm ECG Measurements Heart Rate 62 AXES MI 140 P 58 QRSd 98 QRS 56 QT 387 T 65 QTc 393 Conclusion SINUS RHYTHM NORMAL ECG Electronically signed by : RIMA ARZOLA, 01/13/2024 15:28:00
--- NOTE | 2024-01-13 08:19 | [facility].EDCP ---
Discharge Plan Disposition Patient Disposition: Home, Self-Care Condition: Good Prescriptions Prescriptions: New methocarbamol 750 mg tablet 1,500 mg PO TID 5 Days Qty: 30 0RF nitroglycerin 0.4 mg tablet, sublingual 0.4 mg sublingual Q5M PRN (Reason: chest pain) Qty: 30 0RF Rx Instructions: do not exceed 3 doses per episode No Action losartan 25 mg tablet 25 mg PO DAILY Qty: 30 2RF sumatriptan succinate [Imitrex] 100 mg tablet 100 mg PO ONCE PRN (Reason: migraine headache) Qty: 10 6RF Rx Instructions: Take 1 tablet by mouth at onset of headache. If symptoms persist, may repeat 1 tablet after 2 hours. Max dose 2 tablets in 24 hours or 4 tablets/week. Qulipta 60 mg tablet 60 mg PO DAILY Qty: 30 2RF albuterol sulfate 90 mcg/actuation HFA aerosol inhaler 1 inh inhalation QID PRN (Reason: asthma) Qty: 8.5 2RF methylprednisolone [Medrol (Gregory)] 4 mg tablets,dose pack See Rx Instructions PO PER PKG DIR Qty: 21 0RF Rx Instructions: PO PER PKG DIR Referrals Follow up/Referrals: Juan Bustos MD [Staff Physician] - See instructions Provider,MD Geno [Referring] - See instructions Activity Restrictions/Add. Instructions Additional Instructions/Restrictions: Follow-up with cardiology regarding this visit to the emergency department for further cardiology workup. Take acid medication (omeprazole, esomeprazole) 20 mg each night for 4 to 6 weeks to help with acid symptoms. If you continue having discomfort from acid reflux, consider talking to your family doctor about follow-up with gastroenterology, referral placed here for your convenience. You could call and see if you can get scheduled for evaluation and potentially upper endoscopy. If you believe you are having heart symptoms, chew 4 baby aspirin, take 1 nitroglycerin. Nitroglycerin can be repeated every 5 minutes for a total of 3 doses before coming to the emergency department. Call your family doctor to establish care for this visit to the emergency department and schedule follow-up within 48 hours to ensure improvement. If you have any worsening of your condition or any other concerning signs or symptoms, return to the emergency department or your primary care doctor for further evaluation. Clinical Impressions Clinical Impression: Atypical chest pain, GERD (gastroesophageal reflux disease), Abdominal wall pain in right flank Print Language Print Language: Czech Discharge ED Provider: Barry Still HPI General Chief Complaint: Chest Pain Stated Complaint: cp Time Seen by Provider: 01/13/24 08:10 Mode of Arrival: Ambulatory Source of Information: Patient Limitations: No Limitations Description of Symptoms (Recalled from ER Triage Doc. by RN): Patient reports he was laying in bed, chest pain started 2 hours ago. Substernal and not radiating anywhere at this time. Patient rates pain 6/10. History of Present Illness HPI narrative: Please note that above description of symptoms, in this electronic medical record under categorization of recalled from ER triage doctor by RN are reflective of an initial nursing assessment, however, is not reflective of my full history and physical exam that was personally taken and clarified. Consequentially, this preceding description of symptoms, which may include the patient's categorized chief complaint in the EMR, do not reflect my personal clinical impression, and the ultimate description of history of present illness and patient stated complaints should be deferred to this section of the note. Unless stated otherwise or congruent with this section of the note, additional signs, symptoms, or incongruence should be interpreted as inaccurate with my clinical impression. Related Data Previous Rx's ?Medication ?Instructions ?Recorded sumatriptan succinate 100 mg 100 mg PO ONCE PRN migraine 11/04/23 tablet (Imitrex) headache #10 tabs atogepant 60 mg tablet (Qulipta) 60 mg PO DAILY #30 tabs 11/29/23 albuterol sulfate 90 mcg/actuation 1 inh inhalation QID PRN asthma 12/14/23 aerosol inhaler #8.5 grams losartan 25 mg tablet 25 mg PO DAILY #30 tabs 12/28/23 methylprednisolone 4 mg tablets in See Rx Instructions PO PER PKG DIR 01/04/24 a dose pack (Medrol (Gregory)) #21 tabs methocarbamol 750 mg tablet 1,500 mg (2 x 750 mg) PO TID 5 01/13/24 days #30 tabs nitroglycerin 0.4 mg sublingual 0.4 mg sublingual Q5M PRN chest 01/13/24 tablet pain #30 tabs Allergies Allergy/AdvReac Type Severity Reaction Status Date / Time amoxicillin Allergy Intermediate rash Verified 12/28/23 15:36 tree nut Allergy Hives Verified 12/28/23 15:36 [facility] Disclaimer: The information contained in this section may have been updated after the patient was seen, as this information can be updated by other users. Medical History Sinusitis Left ear pain Tinnitus Seen and evaluated by ENT Abdominal pain History of asthma History of anxiety History of hypertension History of migraine Impacted cerumen of left ear Vertigo Chest pain Dizziness Surgical History History of shoulder surgery left Family History Other Family history of anxiety disorder Family history of cancer Family history of diabetes mellitus type II Social History Smoking Status: Current every day smoker alcohol intake: never substance use type: denies use current occupational status: unemployed household members: spouse and children housing: house marital status: education level: high school do you feel safe at home: Yes victim of physical abuse: No victim of emotional abuse: No victim of sexual abuse: No would you like helpful sources: No Other Medical History Have you received the Flu Vaccine for this season: No Have you received the Pneumonia Vaccine: No ROS Obtained: Yes All systems reviewed & no additional complaints except as documented Physical Exam General General appearance: alert and anxious Neck Neck exam: Present trachea midline Chest Chest inspection: Present normal inspection and symmetric chest wall rise Respiratory Respiratory exam: Present normal lung sounds bilaterally; Absent respiratory distress, wheezes, stridor, accessory muscle use or prolonged expiratory phase Cardiovascular Cardiovascular exam: Present regular rate, normal rhythm and other (Pulses equal and symmetric in upper and lower extremities) Abdominal Exam Abdominal exam: Present soft; Absent distention, tenderness, guarding, rebound or rigidity Extremities Exam Extremities exam: Absent edema Neurological Exam Neurological exam: Present alert, oriented X3 and CN II-XII intact Skin Skin exam: Present warm and dry; Absent cyanosis, diaphoresis or pallor HEART Score HEART Score HEART Score assessment performed?: Yes History (anamnesis): Slightly suspicious ECG: Normal Age: 45-65 years Risk factors: 1-2 risk factors Troponin: </= normal limit HEART Score: 2 Procedures Limited Ultrasound Indication:: Limited cardiac ultrasound Indication: Chest pain Identified cardiac views: -Cardiac parasternal long axis -Cardiac parasternal short axis Findings: -Cardiac activity present -Gross wall motion normal -Pericardial effusion absent -Right heart strain absent Impression: -Normal cardiac ultrasound with normal EPSS, no effusion, grossly normal wall motion Images were saved to permanent archive The study was technically adequate CPT: 77425 This study was performed by ut, and I personally interpreted all images/videos. Based on my clinical judgement, these images were adequate and did not necessitate further imaging Views:: Limited RUQ ultrasound Indication: Right upper quadrant/flank pain Identified structures: -Gallbladder -Gallbladder wall -Common bile duct -Liver Findings: Sonographic Contreras sign: Absent Gallstones: Absent Sludge: Absent Pericholecystic fluid: Absent Maximal GB wall thickness (mm) (normal is </= 3mm): Normal Common bile duct width (mm) (normal is </= 6mm): Normal Gallbladder width (cm) (normal is < 4cm): Normal Gallbladder length (cm) (normal is < 10cm): Normal Impression: Normal right upper quadrant ultrasound. Images were saved to permanent archive The study was technically adequate CPT 07321-15 This study was performed by ut, and I personally interpreted all images/videos. Based on my clinical judgement, these images were adequate and did not necessitate further imaging. Critical Care Critical Care Time Critical Care Time: No Medical Decision Making Medical Records Medical records reviewed: Yes I reviewed the patient's medical records. Tomás Inquiry Pt receiving controlled substance: No Tomás was queried for this patient: No Vital Signs Vital Signs: 01/13/24 08:04 01/13/24 08:13 01/13/24 08:29 Temperature Temperature Source Pulse Rate 70 64 Pulse Rate [Right Brachial] 70 Respiratory Rate 20 Blood Pressure 122/87 Blood Pressure [Right Arm] 156/103 H Blood Pressure Mean Blood Pressure Mean [Right Arm] 120 Blood Pressure Source Blood Pressure Source [Right Arm] Automatic Cuff Blood Pressure Position Blood Pressure Position [Right Arm] Supine 02 Sat by Pulse Oximetry 98 97 Oxygen Delivery Method Room Air Room Air 01/13/24 08:45 01/13/24 09:30 01/13/24 10:01 Temperature Temperature Source Pulse Rate 62 60 66 Pulse Rate [Right Brachial] Respiratory Rate 12 12 Blood Pressure 157/101 H 164/113 H 106/68 L Blood Pressure [Right Arm] Blood Pressure Mean 82 Blood Pressure Mean [Right Arm] Blood Pressure Source Blood Pressure Source [Right Arm] Blood Pressure Position Blood Pressure Position [Right Arm] 02 Sat by Pulse Oximetry 96 97 95 Oxygen Delivery Method Room Air 01/13/24 10:48 Temperature 98.6 F Temperature Source Oral Pulse Rate 67 Pulse Rate [Right Brachial] Respiratory Rate 20 Blood Pressure 123/81 Blood Pressure [Right Arm] Blood Pressure Mean Blood Pressure Mean [Right Arm] Blood Pressure Source Automatic Cuff Blood Pressure Source [Right Arm] Blood Pressure Position Sitting Blood Pressure Position [Right Arm] 02 Sat by Pulse Oximetry Oxygen Delivery Method Room Air Lab Data Labs: Lab Results 01/13/24 08:11: WBC 7.9, RBC 5.26, Hgb 16.1, Hct 48.0, MCV 91.3, MCH 30.7, MCHC 33.6, RDW 14.0, Plt Count 239, MPV 8.0, Neut % (Auto) 41.7, Lymph % (Auto) 47.8, [place] % (Auto) 7.4, Eos % (Auto) 1.4, Baso % (Auto) 1.7, Neut # (Auto) 3.3, Lymph # (Auto) 3.8, [place] # (Auto) 0.6, Eos # (Auto) 0.1, Baso # (Auto) 0.1, APTT 27.6, Sodium 142, Potassium 4.2, Chloride 104, Carbon Dioxide 31 H, Anion Gap 11.2, BUN 13, Creatinine 1.10, Estimated Creat Clear 125, Estimated GFR 72, Est GFR ( Amer) 87, Glucose 91, Calcium 9.2, Magnesium 2.3, Total Bilirubin 0.6, AST 26, ALT 29, Alkaline Phosphatase 81, Troponin I < 0.01, NT-Pro-B Natriuret Pep < 20.0, Total Protein 7.4, Albumin 4.3, Globulin 3.1, Albumin/Globulin Ratio 1.4, TSH 3.98, Thyroxine (T4) 11.1 H, HIV 1&2 Antibody Rapid Nonreactive 01/13/24 08:31: VBG pH 7.32, VBG pCO2 58.2 H, VBG pO2 28.4, VBG HCO3 29.6, VBG Total CO2 31.4 H, VBG O2 Saturation 52.8, VBG Base Excess 3.6 H, VBG Lactic Acid 1.8 01/13/24 08:40: Urine Color Yellow, Urine Appearance Clear, Urine pH 6.5, Ur Specific [place] 1.020, Urine Protein Negative, Urine Glucose (UA) Negative, Urine Ketones Negative, Urine Blood Negative, Urine Nitrate Negative, Urine Bilirubin Negative, Urine Urobilinogen 0.2, Ur Leukocyte Esterase Negative, Urine RBC None, Urine WBC Occasional, Ur Squamous Epith Cells Occasional, Urine Bacteria None 01/13/24 10:10: Troponin I < 0.01 01/13/24 08:11 01/13/24 08:11 Response Orders (Tests/Meds): ED MEDICATIONS Discontinued Medications Generic Name Dose Route Start Last Admin Trade Name Freq PRN Reason Stop Dose Admin Al Hydrox/Mg Hydrox/Simethicone 30 ml 01/13/24 09:44 01/13/24 09:46 Aluminum/Magnesium/Simethicone 30ml Udc PO 01/13/24 09:45 30 ml ONCE ONE Administration Aspirin 324 mg 01/13/24 08:20 01/13/24 08:37 Aspirin 81mg Chewable Tablet PO 01/13/24 08:21 324 mg ONCE ONE Administration Hydroxyzine Pamoate 50 mg 01/13/24 08:20 01/13/24 08:37 Hydroxyzine Pamoate 25mg Capsule PO 01/13/24 08:21 50 mg ONCE ONE Administration Iopamidol 75 ml 01/13/24 09:10 01/13/24 09:11 Iopamidol-370 (76%);100ml Bottle IV 01/13/24 09:11 75 ml ONCE ONE Administration Methocarbamol 1,500 mg 01/13/24 10:32 01/13/24 10:38 Methocarbamol 500mg Tablet PO 01/13/24 10:33 1,500 mg ONCE ONE Administration Nitroglycerin 0.4 mg 01/13/24 09:44 01/13/24 09:48 Nitroglycerin 0.4mg Sl Tablet SL 02/12/24 09:43 0.4 mg Q5MINP PRN Administration Chest Pain Sodium Chloride 10 ml 01/13/24 09:10 01/13/24 09:11 Sodium Chloride 0.9% 10ml Syr (Rad Only) IV 01/13/24 09:11 10 ml ONCE ONE Administration ORDERS Category Date Time Status CT abdomen pelvis w con Stat Cat Scan 01/13/24 08:20 Completed POCUS Point of Care (ER Only) Stat Exams 01/13/24 08:20 Completed XR chest portable Stat Exams 01/13/24 08:20 Completed Complete Blood Count Auto Diff Stat Lab 01/13/24 08:11 Completed Comprehensive Metabolic Panel Stat Lab 01/13/24 08:11 Completed HIV (1&2) Antibody Rapid Stat Lab 01/13/24 08:11 Completed Hep C Ab with Reflex to RNA Stat Lab 01/13/24 08:11 Received Magnesium Stat Lab 01/13/24 08:11 Completed NT Pro Brain Natriuretic Pep. Stat Lab 01/13/24 08:11 Completed PTT [Activated Partial Thrombo Time] Stat Lab 01/13/24 08:11 Completed T4 (Thyroxine) Stat Lab 01/13/24 08:11 Completed TSH [Thyroid Stimulating Hormone] Stat Lab 01/13/24 08:11 Completed Troponin I Q3H Lab 01/13/24 10:10 Completed Troponin I Stat Lab 01/13/24 08:11 Completed Urinalysis and Microscopic Stat Lab 01/13/24 08:40 Completed VBG [Venous Blood Gas] Stat RT 01/13/24 08:31 Completed MDM Narrative Medical Decision Narrative: 48-year-old male history of hypertension, angina, migraines, asthma, multiple episodes of diverticulitis, remote hematochezia necessitating polyp removal on colonoscopy presenting with multiple complaints. Patient states that around 1 AM today, 01/12, patient started having left arm heaviness and numbness. States that this is a symptom that is common with his migraines, so he did not think anything of it and took some Tylenol and back to bed. Around 3 AM today, 01/12, patient states that he started having chest pain that substernal, did not radiate, associated with palpitations. States that he stood up out of bed and palpitations/chest pain got worse at that time, nearly syncopized, did not. States that he was feeling unwell at that time. Went back to bed, unable to get comfortable, so came in for further evaluation. No current chest pain, but he is having a heaviness, and still having left upper extremity heaviness/tingling. States that he thinks these are 2 different entities because they started at different times in do not seem to be related. Chest pressure does not radiate. Associated symptoms include jitteriness, and shaking everywhere. Patient also has oxaluria complaint that he has had right lower quadrant pain for the last week or so. He has chronic right lower quadrant pain secondary to what has been presumed to be diverticular spasm which has been complicated by diverticulitis in the past, but as of yesterday, 01/11, abdominal pain got worse in the right lower quadrant. Mild intensity, does not radiate. No vomiting, fevers, chills, diarrhea, constipation. He did have 1 episode of stool covered in bright red blood yesterday, but has not had any before or since, since the acute on chronic abdominal pain started. History was obtained via conversation with patient. On arrival, patient hemodynamically stable, alert, oriented x4, appropriate, GCS 15, moving all extremities spontaneously, pupils equal and reactive to light. Full physical exam performed and significant for anxious appearing maleWho is tremulous bilateral upper extremities. Exam without murmurs gallops or rubs, normal S1-S2. No evidence of JVD. Clearly auscultated sounds. Bilateral lungs without wheezes or focal breath sounds. Grossly neurologically intact. No lower extremity edema. Differential includes anxiety, panic, ACS, [place], endocrinologic disorder, electrolyte disorder, pericarditis, diverticulitis, appendicitis, colitis, less likely to be dissection, PE, pneumothorax, perforation, mesenteric ischemia, among others. Patient was given 324 mg aspirin, 50 mg of hydroxyzine for symptomatic management and correction of underlying abnormalities. Patient placed on continuous cardiac monitoring and continuous pulse ox with initial blood pressure 156/103, heart rate 70, saturation 98% on room air. Independent interpretation of EKG shows sinus rhythm [address] or T wave changes concerning for acute ischemia. Intervals normal with AK 140, QRS 98, QTc 393. Normal axis. Workup independently interpreted and significant for nonactionable CBC or chemistry. VBG nonactionable. Magnesium normal, LFTs normal, troponin and BNP normal. Thyroid studies nonactionable. Urinalysis without hematuria or UTI. On independent interpretation of imaging, no acute cardiopulmonary airspace disease on chest x-ray. See radiology read for full review of final results. On reevaluation, patient symptoms are all improved, but not resolved. Still having substernal chest pressure as well as right lower quadrant/right flank tenderness. Bedside [id number] ultrasound performed. Normal cardiac activity, no gross abnormalities. Normal EPSS. No evidence of effusion. Bedside right upper quadrant ultrasound also performed with normal gallbladder, no evidence of stones, sludge, cholecystitis or common bile duct dilation. Right renal ultrasound also performed, he has small right renal cyst, but no hydronephrosis or fat stranding. Normal overall. PERC negative. Heart score 2. Patient was placed in observation beginning at 8 AM in order to rule out evolving TN with delta troponins, give meds and determine need for admission versus home-going. The patient was provided serial exams, [id number] ultrasound, aspirin, Maalox, nitroglycerin while awaiting results. Independent interpretation of results demonstrated negative delta troponin. CT without acute intra-abdominal abnormality. On reevaluation, patient states he is no longer having chest discomfort or burning. Mostly worried about right flank tenderness. Not currently present, but wants to know it is causing it. States he has been worked up multiple times for this, no results have been found. It was recommended he follow-up with his family doctor for this. Also recommended he follow-up with cardiology for repeat cardiac evaluation. He voiced his understanding. At this time, I feel patient is appropriate for discharge. Total observation time 2-1/2 hours. Because patient at baseline without signs or symptoms of clinical decompensation, deemed appropriate for discharge. Results were relayed to patient who voiced understanding and were agreeable to outpatient management and follow up. I discussed my clinical impression with patient and answered all questions. At this time, the evidence for any other entities in the differential is insufficient to warrant any further testing or ED observation. This was explained as well. Advisory was given that persistent or worsening symptoms require further evaluation. I confirmed the understanding of this discussion. Puffer Tender disclaimer Much of this encounter note is an electronic roll edge machine operator spoken language to printed text. Electronic roll edge machine operator of the spoken language may permit errors. Although I have reviewed the note, some errors may still exist.
--- NOTE | 2024-01-13 08:20 | XR_ITS ---
PROCEDURE INFORMATION: Exam: XR Chest Exam date and time: 01/13/2024 9:01 AM Age: 48 years old Clinical indication: Pain; Shortness of breath; Chest pressure; Additional info: Cp to left arm, SOA TECHNIQUE: Imaging protocol: Radiologic exam of the chest. Views: 1 view. COMPARISON: CR XR CHEST 2V 03/20/2019 6:45 PM FINDINGS: Lungs: Unremarkable. No consolidation. Pleural spaces: Unremarkable. No pleural effusion. No pneumothorax. Heart/Mediastinum: Unremarkable. No cardiomegaly. Bones/joints: Unremarkable. IMPRESSION: No acute findings.
--- NOTE | 2024-01-13 08:20 | CT_ITS ---
PROCEDURE INFORMATION: Exam: CT Abdomen And Pelvis With Contrast Exam date and time: 01/13/2024 9:02 AM Age: 48 years old Clinical indication: Abdominal pain; Additional info: Rlq pain, history of rlq diverticulitis TECHNIQUE: Imaging protocol: Computed tomography of the abdomen and pelvis with contrast. Radiation optimization: All CT scans at this facility use at least one of these dose optimization techniques: automated exposure control; mA and/or kV adjustment per patient size (includes targeted exams where dose is matched to clinical indication); or iterative reconstruction. Contrast material: ISOVUE; Contrast volume: 75 ml; Contrast route: IV; COMPARISON: CT ABDOMEN PELVIS WO/W CON 07/06/2022 8:54 AM FINDINGS: Liver: Normal. No mass. Gallbladder and biliary ducts: The gallbladder is unremarkable Pancreas: Normal. No ductal dilation. Spleen: Normal. No splenomegaly. Adrenal glands: Normal. No mass. Kidneys and ureters: 17 mm simple cyst right kidney. Additional smaller simple cysts right kidney. . No follow-up imaging recommended . There is no evidence of renal or ureteral calcifications. Stomach and bowel: No diverticulitis . Appendix: Normal appendix Intraperitoneal space: Unremarkable. No free air. No significant fluid collection. Vasculature: Unremarkable. No abdominal aortic aneurysm. Lymph nodes: Unremarkable. No enlarged lymph nodes. Urinary bladder: Unremarkable as visualized. Reproductive: Unremarkable as visualized. Bones/joints: Unremarkable. No acute fracture. Soft tissues: Left inguinal hernia contains fat no bowel. IMPRESSION: No diverticulitis . COMMENTS: Consistent with the [employer]'s Incidental Findings Committee white paper (J Am Mel Radiol 2018): Any incidental renal lesion less than 1 cm or classified as too small to characterize, or any incidental cystic renal lesion characterized as simple-appearing, is likely benign. No follow-up imaging is recommended for these lesions per consensus recommendations based on imaging criteria.
[2024-01-13 08:34] LABS: Lactate Venous 1.8 mmol/L (0.4-2.0); VBG Base Excess 3.6 mmol/L (-2.4-2.3); VBG HCO3 29.6 mmol/L (23-30); VBG Oxygen Saturation 52.8 % (50-70); VBG PCO2 58.2 mmol/L (35-51); VBG PH 7.32 mmol/L (7.31-7.41); VBG PO2 28.4 mmol/L (28-40); VBG Total CO2 31.4 mmol/L (23-27)
[2024-01-13] MEDS: hydrOXYzine pamoate 25MG CAPSULE 50 MG PO (08:37)
[2024-01-13] MEDS: ASPIRIN 81MG CHEWABLE TABLET 324 MG PO (08:37)
[2024-01-13 08:46] LABS: Basophils # 0.1 K/mm3 (0-0.2); Basophils % 1.7 % (0.1-2.0); Eosinophils # 0.1 K/mm3 (0.0-0.4); Eosinophils % 1.4 % (0.1-12.0); Hemoglobin 16.1 g/dL (14.1-18.0); Lymphocytes # 3.8 K/mm3 (0.7-4.5); Lymphocytes % 47.8 % (10-50); Mean Corpuscular HGB Conc 33.6 g/dL (31.8-35.4); Mean Corpuscular Hemoglobin 30.7 pg (27.0-31.2); Mean Corpuscular Volume 91.3 fl (80-94); Monocytes # 0.6 K/mm3 (0.1-1.0); Monocytes % 7.4 % (1.7-9.3); Neutrophils # 3.3 K/mm3 (1.8-7.8); Neutrophils % 41.7 % (37.0-80.0); Platelet Count 239 K/mm3 (142-424); Red Blood Count 5.26 M/mm3 (4.60-6.20); White Blood Count 7.9 K/mm3 (4.8-10.8)
[2024-01-13 08:47] LABS: Microscopic, Urine URINE MICROSCOPIC (MICROSCOPIC)
[2024-01-13 08:51] LABS: Alanine Aminotransferase 29 U/L (12-78); Albumin Level 4.3 g/dl (3.5-5.0); Albumin/Globulin Ratio 1.4 (1.1-1.8); Alkaline Phosphatase 81 U/L (38-126); Aspartate Amino Transferase 26 U/L (17-59); Bilirubin,Total 0.6 mg/dl (0.2-1.3); Blood Urea Nitrogen 13 mg/dl (9-20); Calcium 9.2 mg/dl (8.4-10.2); Carbon Dioxide 31 mmol/L (22.0-30.0); Chloride 104 mmol/L (98-107); Creatinine Clearance Estimated 125 mL/min (50-200); Estimated Glomerular Filt Rate 72 ml/min (>60); GFR (African American) 87 ML/MIN (>60); Globulin 3.1 g/dL (1.3-3.2); Glucose 91 mg/dl (74-100); Magnesium 2.3 mg/dl (1.6-2.3); Sodium 142 mmol/L (136-145); Total Protein,Serum 7.4 g/dl (6.3-8.2)
[2024-01-13 08:53] LABS: Activated Partial Thrombo Time 27.6 seconds (22.8-30.6)
[2024-01-13 08:54] LABS: Appearance,Urine CLEAR (Clear); Bilirubin,Urine Negative (Negative); Blood, Urine Negative (Negative); Color,Urine YELLOW (Yellow); Glucose,Urine (UA) Negative (Negative); Ketones,Urine Negative (Negative); Leukocyte Esterase,Urine Negative (Negative); Nitrate,Urine Negative (Negative); PH,Urine 6.5 (5.0-8.5); Protein,Urine Negative (Negative); Urobilinogen,Urine 0.2 EU/dl (0.2)
[2024-01-13 09:04] LABS: NT Pro Brain Natriuretic Pep. < 20.0 pg/mL (0-125)
[2024-01-13 09:07] LABS: Troponin I < 0.01 ng/ml (0.00-0.034)
[2024-01-13 09:08] LABS: T4 (Thyroxine) 11.1 ug/dl (5.53-11.0)
[2024-01-13 09:09] LABS: Anion Gap 11.2 mEq/L (5-15); Potassium 4.2 mmoL/L (3.5-5.1)
[2024-01-13] MEDS: SODIUM CHLORIDE 0.9% 10ML SYR (RAD ONLY) 10 ML IV (09:11)
[2024-01-13] MEDS: IOPAMIDOL-370 (76%);100ML BOTTLE 75 ML IV (09:11)
[2024-01-13 09:22] LABS: Thyroid Stimulating Hormone 3.98 uIU/mL (0.465-4.68)
[2024-01-13 09:23] LABS: Squamous Epithelial Cell,Urine Occasional #/hpf (0-5); WBC,Urine Occasional #/hpf (0-3)
--- NOTE | 2024-01-13 09:30 | PC.NURSE ---
rounded on pt, no needs at this time.
[2024-01-13] MEDS: ALUMINUM/MAGNESIUM/SIMETHICONE 30ML UDC 30 ML PO (09:46)
[2024-01-13] MEDS: NITROGLYCERIN 0.4MG SL TABLET 0.4 MG SL (09:48)
[2024-01-13] MEDS: METHOCARBAMOL 500MG TABLET 1500 MG PO (10:38)
[2024-01-13 10:58] LABS: Troponin I < 0.01 ng/ml (0.00-0.034)
[2024-01-13 11:45] LABS: HIV (1&2) Antibody Rapid NONREACTIVE (NONREACTIVE)
[2024-01-15 03:36] LABS: HCV Ab Non Reactive (Non Reactive)
== END 2024-01-13 10:50 | disposition home or self-care (01) ==
PROVIDERS: Emergency Provider Emergency Medicine; PCP Nurse Practitioner Family
DX: K21.9 Gastro-esophageal reflux disease without esophagitis (principal); R07.89 Other chest pain; R10.9 Unspecified abdominal pain; R07.9 Chest pain, unspecified
CPT/HCPCS: 71045; 74177; 80050; 80053; 81001; 82803; 83735; 83880; 84436; 84443; 84484; 85025; 85730; 86803; 87389; 93005; 99285; Q9967

== ENCOUNTER 2024-03-07 15:47 | Outpatient (CLI) | payer OTHER, SELFPAY | END 2024-03-07 23:59 | disposition home or self-care (01) | LOC: LAB.DROPOF 03-08 12:24 | PROVIDERS: PCP Nurse Practitioner Family; Visit Provider Nurse Practitioner Family | DX: N39.0 Urinary tract infection, site not specified (principal) | CPT/HCPCS: 87086 ==

== ENCOUNTER 2024-03-17 14:56 | Outpatient (CLI) | payer OTHER, SELFPAY ==
[2024-03-20 00:07] LABS: Pancreatic Elastase, Fecal >800 (>200)
== END 2024-03-17 23:59 | disposition home or self-care (01) ==
LOC: LAB 14:57
PROVIDERS: PCP Nurse Practitioner Family; Visit Provider Nurse Practitioner Family
DX: R10.84 Generalized abdominal pain (principal)
CPT/HCPCS: 82656

== ENCOUNTER 2024-03-20 14:43 | Outpatient (CLI) | payer OTHER, SELFPAY ==
[2024-03-20 15:55] VITALS: PULSE 86; PULSE 90
[2024-03-20] MEDS: ALBUTEROL 0.083% 2.5 MG/3 ML NEB IH (15:55)
== END 2024-03-20 23:59 | disposition home or self-care (01) ==
LOC: RT 14:45
PROVIDERS: PCP Nurse Practitioner Family; Visit Provider Nurse Practitioner Family
DX: J45.909 Unspecified asthma, uncomplicated (principal)
CPT/HCPCS: 94060; 94618; 94640; 94726; 94729; J7613